=== PATIENT | female | born 1960 | race Caucasian/White ===

== ENCOUNTER 2016-07-22 07:41 | Day surgery (SDC) | payer MEDICAID ==
[2016-06-28 09:55] VITALS: BMI 23.9
[2016-07-22] MEDS ORDERED: Acetaminophen-Codeine 300/30 mg Tab PO PRN (07:55)
[2016-07-22] MEDS ORDERED: Dextrose 5%/0.45% NS 1,000 ML IV SCH (08:00)
[2016-07-22] MEDS ORDERED: ceFAZolin IV 1 gm in Dextrose 1 GM/50 ML BAG IVPB ONE (09:38)
[2016-07-22] MEDS ORDERED: EPINEPHrine 1:1000 Nasal Sol(30mL) ONE (09:38)
[2016-07-22] MEDS ORDERED: Lidocaine 2% w Epi 1:100,000 Inj IJ ONE (09:38)
[2016-07-22] MEDS ORDERED: Propofol 10 mg/ml Inj (20 ML) ONE (10:02)
[2016-07-22] MEDS ORDERED: Midazolam 2 MG/2 ML VIAL ONE (10:02)
[2016-07-22] MEDS ORDERED: Lactated Ringer's 1,000 ML IV ONE (10:20)
[2016-07-22] MEDS ORDERED: Neostigmine Methylsulfate 3mg/3ml Syringe IV ONE (10:49)
[2016-07-22] MEDS ORDERED: HYDROmorphone 0.5 mg/0.5 ml ISec IVP PRN (11:19)
--- NOTE | 2016-07-22 12:57 | OP ---
PROCEDURE DATE: 07/22/2016 PREOPERATIVE DIAGNOSES: Deviated septum, enlarged turbinates. POSTOPERATIVE DIAGNOSES: Deviated septum, enlarged turbinates. PROCEDURES: Septoplasty, bilateral endoscopic inferior turbinate reduction. SIGNIFICANT FINDINGS: Deviated septum, enlarged inferior turbinates. DESCRIPTION OF PROCEDURE: The patient was brought in the room, placed in supine position. Anesthesi a was initiated through an ET tube. Adrenaline-soaked pledgets were inserted in the nasal cavity, re mained there for at least 5 minutes then removed. The patient was draped in the usual manner. The s eptum was injected with lidocaine with epinephrine on both sides. A [place]'s incision was made on t he left and mucoperichondrial flap was raised. A vertical incision was made in the cartilage leaving a 1.5 cm anterior and superior strut and a mucoperichondrial flap was raised on the other side. The deviated portion of the cartilage and bone were removed using forceps and chisel. A quilting suture was used to suture the 2 flaps together and close the Alfred's incision. A 0-degree scope was inse rted in the nasal cavity. The inferior turbinates were noted to be enlarged. They were reduced usin g scissors, going from an inferior to superior, anterior to posterior direction on both sides, first on the left then on the right. Bleeding was controlled using suction cautery. Splints were placed. The patient was taken off anesthesia and taken to recovery room in stable manner. Jim Diamond MD cc: [id number] TT: 07/22/2016 12:57:30 nj
[2016-07-22 13:28] VITALS: BP 166/75; PULSE 65; RESP 18; TEMP 97.6; O2SAT 96
== END 2016-07-22 13:28 | disposition home or self-care (01) ==
LOC: C.SDS 07:41
PROVIDERS: ATTEND Otolaryngology
DX: J34.2 Deviated nasal septum (principal); J34.3 Hypertrophy of nasal turbinates; I10 Essential (primary) hypertension; G43.909 Migraine, unspecified, not intractable, without status migrainosus; Z98.51 Tubal ligation status; Z79.899 Other long term (current) drug therapy

== ENCOUNTER 2018-03-09 07:14 | Outpatient (CLI) | payer MEDICAID | END 2018-03-09 07:15 | disposition home or self-care (01) | LOC: C.MRIC 07:14 ==

== ENCOUNTER 2018-04-23 08:05 | Emergency (ER) | payer MEDICAID ==
[2018-04-23 08:05] VITALS: BMI 23.9
[2018-04-23 08:15] VITALS: BP 156/112; PULSE 80; RESP 18; TEMP 97.5; O2SAT 97
--- NOTE | 2018-04-23 08:29 | C.PDOC ---
History Of Present Illness 57 y/o female presents to ED after receiving a call from [facility] to be evaluated in the ED by Dr. Gene Yi for hematuria. Patient denies any urinary symptoms including hematuria, polyuria, dysuria, and incontinence. She denies fever, chills, headache, nausea, vomiting, chest pain, SOB, and abdominal pain. Incidentally, she mentions left breast pain but is scheduled for breast biopsy. She states that Dr. Marte, her PMD, is aware and has referred her to [facility]. Time Seen by Provider: 04/23/18 08:20 Chief Complaint (Nursing): Female Genitourinary History Per: Patient History/Exam Limitations: no limitations Past Medical History Reviewed: Historical Data, Nursing Documentation, Vital Signs Vital Signs: Last Vital Signs Temp 97.5 F L 04/23/18 08:10 Pulse 80 04/23/18 08:10 Resp 18 04/23/18 08:10 BP 156/112 H 04/23/18 08:10 Pulse Ox 97 04/23/18 08:10 - Medical History PMH: Asthma, HTN, Kidney Stones (passed without intervention), Migraine, Osteoporosis, Chronic Kidney Disease Family History: States: Unknown Family Hx - Social History Hx Alcohol Use: No Hx Substance Use: No - Immunization History Hx Tetanus Toxoid Vaccination: No Hx Influenza Vaccination: Yes Hx Pneumococcal Vaccination: No Review Of Systems Constitutional: Negative for: Fever, Chills, Sweats, Weakness Cardiovascular: Negative for: Chest Pain, Palpitations Respiratory: Negative for: Cough, Shortness of Breath Gastrointestinal: Negative for: Nausea, Vomiting, Abdominal Pain Genitourinary: Negative for: Dysuria, Frequency, Incontinence, Hematuria Musculoskeletal: Negative for: Neck Pain Skin: Negative for: Rash Neurological: Negative for: Headache, Dizziness Physical Exam - Physical Exam Appears: Non-toxic, No Acute Distress Skin: Normal Color, Warm Head: Atraumatic, Normacephalic Eye(s): bilateral: Normal Inspection Neck: Normal ROM, Supple Chest: Tenderness (to left breast) Cardiovascular: Rhythm Regular Respiratory: Normal Breath Sounds, No Wheezing Gastrointestinal/Abdominal: Soft, No Tenderness Back: No CVA Tenderness Neurological/Psych: Oriented x3, Normal Speech, Normal Cognition, Normal Motor, Normal Sensation Gait: Steady ED Course And Treatment O2 Sat by Pulse Oximetry: 97 Progress Note: spoke to Dr. Gene Yi and patient was misinformed about location of appointment. He advised patient to come to office as opposed to being seen ED for further workup for hematuria. Patient advised to keep scheduled left biopsy appointment Disposition Discussed With .: Gene Yi Doctor Will See Patient In The: Office Counseled Patient/Family Regarding: Need For Followup - Disposition Referrals: Gene Yi MD [Staff Provider] - Raleigh Maret MD [Staff Provider] - Disposition Time: 08:57 Condition: STABLE Additional Instructions: DAYANARA PALM, thank you for letting us take care of you today. Please follow up with Dr. Gene Yi today in office regarding hematuria Please also follow up with Dr. Marte, your PMD Please keep your appointment for your scheduled breast biopsy Instructions: Blood in the Urine (Hematuria), Adult (DC), Mastalgia (DC) Forms: [employer] (Armenian) - Clinical Impression Clinical Impression: Hematuria, Pain of breast - PA / [facility] CO[facility]ATOR / Resident Statement MD/DO has reviewed & agrees with the documentation as recorded.
== END 2018-04-23 09:20 | disposition home or self-care (01) ==
LOC: C.ER 08:05
DX: R31.9 Hematuria, unspecified (principal); N64.4 Mastodynia

== ENCOUNTER 2018-05-15 08:37 | Outpatient (CLI) | payer MEDICAID | END 2018-05-15 08:38 | disposition home or self-care (01) | LOC: C.USIC 08:38 ==

== ENCOUNTER 2018-05-25 10:51 | Outpatient (CLI) | payer MEDICAID | END 2018-05-25 10:52 | disposition home or self-care (01) | LOC: C.LAB 10:51 ==